=== PATIENT | female | born 1965 | race Caucasian/White ===

== ENCOUNTER 2019-09-07 13:51 | Emergency (ER) | payer SELFPAY ==
[~2019-09-07] VITALS: Ht 167.6 cm; Wt 78.6 kg
[~2019-09-07 13:51] MED LIST: IBUP-1986 PO; METH-360 PO
[2019-09-07 14:14] VITALS: BP 117/75
== END 2019-09-07 16:29 | disposition left against medical advice (07) ==
LOC: ER 13:52
DX: R10.9 Unspecified abdominal pain (principal); Z53.21 Procedure and treatment not carried out due to patient leaving prior to being seen by health care provider